=== PATIENT | male | born 1960 | race American Indian/Alaskan Native ===

== ENCOUNTER 2021-11-21 23:54 | Emergency (ER) | payer MEDICARE ==
[2021-11-22 00:04] VITALS: BP 144/90
--- NOTE | 2021-11-22 05:36 | XRay Report ---
CHEST 2 VIEWS INDICATION / CLINICAL INFORMATION: Syncope. COMPARISON: None available. FINDINGS: SUPPORT DEVICES: None. HEART / MEDIASTINUM: Heart size and mediastinal contour appear within normal limits. LUNGS / PLEURA: No significant pulmonary or pleural abnormality. No pneumothorax. BONES: No significant osseous abnormality. ADDITIONAL FINDINGS: No significant additional findings. IMPRESSION: 1. No active cardiopulmonary disease. Signer Name: Bentley Teixeira II, MD Signed: 11/22/2021 5:32 AM Workstation Name: [id number]
[2021-11-22 05:39] LABS: Basophils # (Auto) 0.1 K/mm3 (0.0-0.1); Basophils % (Auto) 1.2 % (0.0-1.8); Eosinophils # (Auto) 0.3 K/mm3 (0.0-0.4); Eosinophils % (Auto) 3.4 % (0.0-4.3); Hematocrit 44.8 % (35.5-45.6); Hemoglobin 14.8 gm/dl (11.8-15.2); Lymphocytes # (Auto) 2.6 K/mm3 (1.2-5.4); Lymphocytes % (Auto) 25.8 % (13.4-35.0); Mean Corpuscular HGB Conc 33 % (32-34); Mean Corpuscular Volume 94 fl (84-94); Monocytes # (Auto) 0.9 K/mm3 (0.0-0.8); Monocytes % (Auto) 8.9 % (0.0-7.3); Platelet Count 251 K/mm3 (140-440); Red Blood Count 4.75 M/mm3 (3.65-5.03); Red Cell Distribution Width 13.4 % (13.2-15.2)
--- NOTE | 2021-11-22 05:49 | Cat Scan Report ---
CT HEAD WITHOUT CONTRAST INDICATION / CLINICAL INFORMATION: Syncopal episode with trauma to the back of head. TECHNIQUE: CT head was performed without administration of intravenous contrast. All CT scans at this location are performed using CT dose reduction for ALARA by means of automated exposure control. COMPARISON: No images are available for comparison. CT from 02/06/2016 not available. FINDINGS: CEREBRAL HEMISPHERES: Generalized atrophy and bilateral regions of periventricular white matter hypoa ttenuation compatible with microvascular ischemia are demonstrated. No midline shift. Basal cisterns patent. Remote infarction posterior cortex left occipital lobe. Additional remote infarction right fr ontoparietal region within the centrum semiovale. HEMORRHAGE: None. CEREBELLUM / BRAINSTEM: Remote bilateral cerebellar infarctions. ORBITS: No significant abnormality. SOFT TISSUES: No significant abnormality. SKULL: No significant abnormality. PARANASAL SINUSES / MASTOID AIR CELLS: Normal as visualized. ADDITIONAL FINDINGS: None. IMPRESSION: 1. Encephalomalacia suggesting remote infarctions of the posterior left lobe, right frontoparietal re gion and centrum semiovale, and bilateral cerebellum. No acute intracranial pathology. 2. Moderate generalized atrophy and findings compatible with microvascular ischemia. Signer Name: Bentley Teixeira II, MD Signed: 11/22/2021 5:45 AM Workstation Name: [id number]
[2021-11-22] MEDS ORDERED: HYDROGEN PEROXIDE 118 ML SOLUTION TP ONE (05:56)
[2021-11-22 06:02] LABS: Alanine Aminotransferase 30 units/L (7-56); Albumin 4.3 g/dL (3.9-5); BUN/Creatinine Ratio 12; Blood Urea Nitrogen 14 mg/dL (9-20); Calcium 9.8 mg/dL (8.4-10.2); Hemolysis Index 12
--- NOTE | 2021-11-22 06:48 | Emergency Department Report ---
ED Fall HPI - General Chief Complaint: Fall Stated Complaint: FALL/HEAD LACERATIONS Time Seen by Provider: 11/22/21 05:12 Source: patient Mode of arrival: Ambulatory - History of Present Illness Initial Comments: 58-year-old male was admitted department complaining of a fall prior to arrival resulting in laceration to the occiput of his skull. States he stood up and felt a little lightheaded and fell down to the ground striking his head. He was able to get up and take himself to the bathroom and wash himself off when he noticed he had some bleeding from the scalp decided come to emergency department to get treatment. Currently reports no headache, no blurry vision, no chest pain palpitation, no nausea vomiting, no loss of bowel bladder. MD Complaint: fall -: Sudden Fall From: standing When Fall Occurred: 1-3 hours [employer], 4-6 hours [employer] Fall Witnessed: no Place Fall Occurred: home Location: head Severity: mild Quality: sharp Associated Symptoms: headache, lightheaded. denies: neck pain, numbness, chest paint, abdominal pain, vertigo, other - Related Data Home Medications Medication Instructions Recorded Confirmed Last Taken lisinopriL [Zestril TAB] 10 mg PO QDAY 02/06/16 02/06/16 02/10/16 traMADoL [Ultram] 50 mg PO Q6HR PRN 02/06/16 02/06/16 02/09/16 Previous Rx's Medication Instructions Recorded Last Taken Type AtorvaSTATin [Lipitor] 10 mg PO QHS #30 tablet 02/06/16 02/10/16 Rx Clopidogrel Bisulfate [Plavix] 75 mg PO QDAY #30 tablet 02/06/16 02/10/16 Rx oxyCODONE [roxiCODONE] 5 mg PO Q6HR PRN #12 tablet 02/10/16 Unknown Rx predniSONE [Deltasone] 20 mg PO BID #10 tab 02/10/16 Unknown Rx Gabapentin [Neurontin] 300 mg PO BID #15 cap 02/24/16 Unknown Rx Ibuprofen [Motrin] 800 mg PO Q8HR PRN #15 tablet 02/24/16 Unknown Rx Allergies Allergy/AdvReac Type Severity Reaction Status Date / Time No Known Allergies Allergy Unverified 02/06/16 13:30 ED Review of Systems ROS: Stated complaint: FALL/HEAD LACERATIONS Other details as noted in HPI Comment: All other systems reviewed and negative ED Past Medical Hx - Past Medical History Hx Hypertension: Yes Hx CVA: Yes Hx Heart Attack/AMI: Yes Hx Congestive Heart Failure: No Hx Diabetes: No Hx Deep Vein Thrombosis: No Hx Pulmonary Embolism: No Hx GERD: No Hx Liver Disease: No Hx Renal Disease: No Hx Sickle Cell Disease: No Hx Arthritis: No Hx Headaches / Migraines: No Hx Seizures: No Hx Kidney Stones: No Hx Psychiatric Treatment: No Hx Asthma: No Hx COPD: No Hx Tuberculosis: No Hx Dementia: No Hx HIV: No 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 - Surgical History Hx Coronary Stent: No Hx Open Heart Surgery: No Hx Pacemaker: No Hx Internal Defibrillator: No Hx Cholecystectomy: No Hx Appendectomy: No Hx Breast Surgery: No Additional Surgical History: right arm surgery, right leg surgery - Social History Smoking Status: Never Smoker Substance Use Type: None - Medications Home Medications: Home Medications Medication Instructions Recorded Confirmed Last Taken Type AtorvaSTATin [Lipitor] 10 mg PO QHS #30 tablet 02/06/16 02/10/16 Rx Clopidogrel Bisulfate [Plavix] 75 mg PO QDAY #30 tablet 02/06/16 02/10/16 Rx lisinopriL [Zestril TAB] 10 mg PO QDAY 02/06/16 02/06/16 02/10/16 History traMADoL [Ultram] 50 mg PO Q6HR PRN 02/06/16 02/06/16 02/09/16 History oxyCODONE [roxiCODONE] 5 mg PO Q6HR PRN #12 tablet 02/10/16 Unknown Rx predniSONE [Deltasone] 20 mg PO BID #10 tab 02/10/16 Unknown Rx Gabapentin [Neurontin] 300 mg PO BID #15 cap 02/24/16 Unknown Rx Ibuprofen [Motrin] 800 mg PO Q8HR PRN #15 tablet 02/24/16 Unknown Rx ED Physical Exam - General Limitations: No Limitations General appearance: alert, in no apparent distress - Expanded Head Exam Expanded Head exam: Present: laceration, other (Also has a linear laceration to the central aspect of the skin of the scalp). Absent: contusion, hematoma, greco's sign, general tenderness 1 - ARC laceration to this region - Eye Eye exam: Present: normal appearance Pupils: Present: normal accommodation - ENT ENT exam: Present: normal exam, mucous membranes moist - Neck Neck exam: Present: normal inspection, full ROM. Absent: tenderness, lymphadenopathy, thyromegaly - Respiratory Respiratory exam: Present: normal lung sounds bilaterally. Absent: respiratory distress - Cardiovascular Cardiovascular Exam: Present: regular rate, normal rhythm. Absent: systolic murmur, diastolic murmur, rubs, gallop - GI/Abdominal GI/Abdominal exam: Present: soft, normal bowel sounds - Rectal Rectal exam: Present: deferred - Extremities Exam Extremities exam: Present: normal inspection - Back Exam Back exam: Present: normal inspection - Neurological Exam Neurological exam: Present: alert, oriented X3 - Psychiatric Psychiatric exam: Present: normal affect, normal mood - Skin Skin exam: Present: warm, dry, intact, normal color. Absent: rash ED Course Vital Signs 11/21/21 23:59 Temperature 97.8 F Pulse Rate 96 H Respiratory 20 Rate Blood Pressure 144/90 O2 Sat by Pulse 96 Oximetry - Laceration /Wound Repair Head Wound Location: head Wound Length (cm): 6 Wound's Depth, Shape: linear Wound Explored: clean Betadine Prep?: Yes Anesthesia: 1% Lidocaine Wound Debrided: moderate Progress: Wound #1 was closed with corby x8 1 #2 linear deep portion being 2 cm was closed with corby x2 ED Medical Decision Making - Lab Data Result diagrams: 11/22/21 05:15 11/22/21 05:15 Lab Results 11/22/21 11/22/21 Range/Units 05:15 05:15 WBC 10.1 (4.5-11.0) K/mm3 RBC 4.75 (3.65-5.03) M/mm3 Hgb 14.8 (11.8-15.2) gm/dl Hct 44.8 (35.5-45.6) % MCV 94 (84-94) fl MCH 31 (28-32) pg MCHC 33 (32-34) % RDW 13.4 (13.2-15.2) % Plt Count 251 (140-440) K/mm3 Lymph % (Auto) 25.8 (13.4-35.0) % [place] % (Auto) 8.9 H (0.0-7.3) % Eos % (Auto) 3.4 (0.0-4.3) % Baso % (Auto) 1.2 (0.0-1.8) % Lymph # (Auto) 2.6 (1.2-5.4) K/mm3 [place] # (Auto) 0.9 H (0.0-0.8) K/mm3 Eos # (Auto) 0.3 (0.0-0.4) K/mm3 Baso # (Auto) 0.1 (0.0-0.1) K/mm3 Seg Neutrophils % 60.7 (40.0-70.0) % Seg Neutrophils # 6.1 (1.8-7.7) K/mm3 Sodium 138 (137-145) mmol/L Potassium 3.8 (3.6-5.0) mmol/L Chloride 98.7 (98-107) mmol/L Carbon Dioxide 27 (22-30) mmol/L Anion Gap 16 mmol/L BUN 14 (9-20) mg/dL Creatinine 1.2 (0.8-1.3) mg/dL Estimated GFR > 60 ml/min BUN/Creatinine Ratio 12 % Glucose 144 H (75-100) mg/dL Calcium 9.8 (8.4-10.2) mg/dL Magnesium 1.90 (1.7-2.3) mg/dL Total Bilirubin 0.30 (0.1-1.2) mg/dL AST 19 (5-40) units/L ALT 30 (7-56) units/L Alkaline Phosphatase 63 (35-129) units/L Troponin T < 0.010 (0.00-0.029) ng/mL Total Protein 7.3 (6.3-8.2) g/dL Albumin 4.3 (3.9-5) g/dL Albumin/Globulin Ratio 1.4 % - Radiology Data Radiology results: report reviewed [facility] [address] [place] [address] Cat Scan Report Signed Patient: MONA ESQUIVEL MR#: [id number] [birth year] : 1960 Acct:[id number] Age/Sex: 61 / M ADM Date: 11/21/21 Loc: ED Attending Dr: Ordering Physician: JOSE ALBERTO OLSEN Date of Service: 11/22/21 Procedure(s): CT head/brain wo con Accession Number(s): [id number] cc: JOSE ALBERTO OLSEN CT HEAD WITHOUT CONTRAST INDICATION / CLINICAL INFORMATION: Syncopal episode with trauma to the back of head. TECHNIQUE: CT head was performed without administration of intravenous contrast. All CT scans at this location are performed using CT dose reduction for ALARA by means of automated exposure control. COMPARISON: No images are available for comparison. CT from 02/06/2016 not available. FINDINGS: CEREBRAL HEMISPHERES: Generalized atrophy and bilateral regions of periventricular white matter hypoattenuation compatible with microvascular ischemia are demonstrated. No midline shift. Basal cisterns patent. Remote infarction posterior cortex left occipital lobe. Additional remote infarction right frontoparietal region within the centrum semiovale. HEMORRHAGE: None. CEREBELLUM / BRAINSTEM: Remote bilateral cerebellar infarctions. ORBITS: No significant abnormality. SOFT TISSUES: No significant abnormality. SKULL: No significant abnormality. PARANASAL SINUSES / MASTOID AIR CELLS: Normal as visualized. ADDITIONAL FINDINGS: None. IMPRESSION: 1. Encephalomalacia suggesting remote infarctions of the posterior left lobe, right frontoparietal region and centrum semiovale, and bilateral cerebellum. No acute intracranial pathology. 2. Moderate generalized atrophy and findings compatible with microvascular ischemia. Signer Name: Patrice Lopez II, MD Signed: 11/22/2021 5:45 AM Workstation Name: [id number] Transcribed By: LAN Dictated By: PATRICE LOPEZ II, MD Electronically Authenticated By: PATRICE LOPEZ II, MD Signed Date/Time: 11/22/21 0545 [facility] [address] [place] [address] Cat Scan Report Signed Patient: MONA ESQUIVEL MR#: [id number] [birth year] : 1960 Acct:[id number] Age/Sex: 61 / M ADM Date: 11/21/21 Loc: ED Attending Dr: Ordering Physician: JOSE ALBERTO OLSEN Date of Service: 11/22/21 Procedure(s): CT head/brain wo con Accession Number(s): [id number] cc: JOSE ALBERTO OLSEN CT HEAD WITHOUT CONTRAST INDICATION / CLINICAL INFORMATION: Syncopal episode with trauma to the back of head. TECHNIQUE: CT head was performed without administration of intravenous contrast. All CT scans at this location are performed using CT dose reduction for ALARA by means of automated exposure control. COMPARISON: No images are available for comparison. CT from 02/06/2016 not available. FINDINGS: CEREBRAL HEMISPHERES: Generalized atrophy and bilateral regions of periventricular white matter hypoattenuation compatible with microvascular ischemia are demonstrated. No midline shift. Basal cisterns patent. Remote infarction posterior cortex left occipital lobe. Additional remote infarction right frontoparietal region within the centrum semiovale. HEMORRHAGE: None. CEREBELLUM / BRAINSTEM: Remote bilateral cerebellar infarctions. ORBITS: No significant abnormality. SOFT TISSUES: No significant abnormality. SKULL: No significant abnormality. PARANASAL SINUSES / MASTOID AIR CELLS: Normal as visualized. ADDITIONAL FINDINGS: None. IMPRESSION: 1. Encephalomalacia suggesting remote infarctions of the posterior left lobe, right frontoparietal region and centrum semiovale, and bilateral cerebellum. No acute intracranial pathology. 2. Moderate generalized atrophy and findings compatible with microvascular ischemia. Signer Name: Patrice Lopez II, MD Signed: 11/22/2021 5:45 AM Workstation Name: [id number] Transcribed By: LAN Dictated By: PATRICE LOPEZ II, MD Electronically Authenticated By: PATRICE LOPEZ II, MD Signed Date/Time: 11/22/21544 DD/ 0 TD/TT: DD/ 0 TD/TT: - Medical Decision Making Current [place] coma scale 15. Does have large occiput to hematoma. No skull c repitance or stepoff. No Greco sign. No raccoon eyes. No fluid from nose or ears. No nasal septal hematoma. Does have 2 lacerations to the scalp which was closed with corby. No cervical spine tenderness. CT scan performed to evaluate for any intracranial injury or skull fracture. Patient is protecting airway and otherwise has an unremarkable secondary trauma survey. Given instructions regarding supportive care including pain meds as needed, return precautions, follow-up with primary physician. Critical care attestation.: If time is entered above; I have spent that time in minutes in the direct care of this critically ill patient, excluding procedure time. ED Disposition Clinical Impression: Head injury due to trauma Disposition: HOME / SELF CARE / HOMELESS Is pt being admited?: No Does the pt Need Aspirin: No Condition: Stable Instructions: How to Use Cold Therapy Additional Instructions: He was seen emergency department today for head injury since secondary to a fall that may have been related to presyncope resulting in a laceration which was closed with corby please follow-up in 5 to 6 days to be evaluated for staple removal Referrals: [facility] [Provider Group] - 3-5 Days
== END 2021-11-22 07:12 | disposition home or self-care (01) ==
LOC: ED 23:54
DX: S01.91XA Laceration without foreign body of unspecified part of head, initial encounter (principal); I11.9 Hypertensive heart disease without heart failure; R51.9 Headache, unspecified; R42 Dizziness and giddiness; Z86.73 Personal history of transient ischemic attack (TIA), and cerebral infarction without residual deficits; Z98.890 Other specified postprocedural states; W18.30XA Fall on same level, unspecified, initial encounter; Y93.89 Activity, other specified; Y92.89 Other specified places as the place of occurrence of the external cause; Y99.8 Other external cause status
CPT/HCPCS: 36415; 70450; 71046; 80053; 83735; 84484; 85025; 99284

== ENCOUNTER 2021-11-30 07:39 | Emergency (ER) | payer MEDICARE ==
[2021-11-30 07:54] VITALS: BP 106/77
--- NOTE | 2021-11-30 09:16 | Emergency Department Report ---
Suture/Staple Removal - HPI Chief Complaint: Laceration/Recheck/Suture Stated Complaint: CORBY REMOVED Time Seen by Provider: 11/30/21 09:13 When Sutures or Corby Placed: >14 Days Ago Wound Location: Scalp ED Review of Systems ROS: Stated complaint: CORBY REMOVED Other details as noted in HPI Comment: All other systems reviewed and negative Constitutional: denies: chills, fever Neurological: denies: headache, weakness ED Past Medical Hx - Past Medical History Hx Hypertension: Yes Hx CVA: Yes Hx Heart Attack/AMI: Yes Hx Congestive Heart Failure: No Hx Diabetes: No Hx Deep Vein Thrombosis: No Hx Pulmonary Embolism: No Hx GERD: No Hx Liver Disease: No Hx Renal Disease: No Hx Sickle Cell Disease: No Hx Arthritis: No Hx Headaches / Migraines: No Hx Seizures: No Hx Kidney Stones: No Hx Psychiatric Treatment: No Hx Asthma: No Hx COPD: No Hx Tuberculosis: No Hx Dementia: No Hx HIV: No 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 - Surgical History Hx Coronary Stent: No Hx Open Heart Surgery: No Hx Pacemaker: No Hx Internal Defibrillator: No Hx Cholecystectomy: No Hx Appendectomy: No Hx Breast Surgery: No Additional Surgical History: right arm surgery, right leg surgery - Social History Smoking Status: Never Smoker Substance Use Type: None - Medications Home Medications: Home Medications Medication Instructions Recorded Confirmed Last Taken Type AtorvaSTATin [Lipitor] 10 mg PO QHS #30 tablet 02/06/16 02/10/16 Rx Clopidogrel Bisulfate [Plavix] 75 mg PO QDAY #30 tablet 02/06/16 02/10/16 Rx lisinopriL [Zestril TAB] 10 mg PO QDAY 02/06/16 02/06/16 02/10/16 History traMADoL [Ultram] 50 mg PO Q6HR PRN 02/06/16 02/06/16 02/09/16 History oxyCODONE [roxiCODONE] 5 mg PO Q6HR PRN #12 tablet 02/10/16 Unknown Rx predniSONE [Deltasone] 20 mg PO BID #10 tab 02/10/16 Unknown Rx Gabapentin [Neurontin] 300 mg PO BID #15 cap 02/24/16 Unknown Rx Ibuprofen [Motrin] 800 mg PO Q8HR PRN #15 tablet 02/24/16 Unknown Rx Suture Removal Exam - Exam General: Vital signs noted. No distress. Alert and acting appropriately. Wound: No Pathologic Erythema, No Tenderness, No Drainage, No Pus, No Wound Dehiscence Other Systems: All other systems reviewed and are unremarkable. ED Course Vital Signs 11/30/21 07:52 Temperature 98.6 F Pulse Rate 102 H Respiratory 16 Rate Blood Pressure 106/77 [Left] O2 Sat by Pulse 95 Oximetry - Procedure Description Procedures done: Staple removal: Total of 11 corby removed from 2 legs to scalp. Well approximated, no erythema, edema, tenderness, or drainage. Patient tolerated well. Of note, patient noted to have areas along laceration where corby were but have previously been pulled out by patient accidentally. ED Recheck MDM - Differential Diagnosis Suture/Staple Removal - Medical Decision Making [place] removed from a procedure note. Patient tolerated well. Critical care attestation.: If time is entered above; I have spent that time in minutes in the direct care of this critically ill patient, excluding procedure time. ED Disposition Clinical Impression: Removal of corby Disposition: 01 HOME / SELF CARE / HOMELESS Is pt being admited?: No Does the pt Need Aspirin: No Condition: Stable Instructions: Wound Closure Removal, Care After Additional Instructions: Follow-up with primary care provider as needed. Return to the emergency department as needed. Time of Disposition: 09:16
== END 2021-11-30 09:28 | disposition home or self-care (01) ==
LOC: ED 07:39
DX: S01.01XD Laceration without foreign body of scalp, subsequent encounter (principal); X58.XXXD Exposure to other specified factors, subsequent encounter
CPT/HCPCS: 99282